=== PATIENT | male | born 2000 | race Caucasian/White ===

== ENCOUNTER 2025-01-07 07:43 | Emergency (ER) | payer OTHER ==
[~2025-01-07] VITALS: Ht 167.6 cm; Wt 61.2 kg
[~2025-01-07 07:43] MED LIST: ADDERALL10 MG PO
[2025-01-07] MEDS ORDERED: PREDNISONE20 M1 PO (07:56)
[2025-01-07] MEDS ORDERED: Dexamethasone Sodium Phospha 20 MG/5 ML VIAL IM ONE (08:00)
== END 2025-01-07 08:15 | disposition home or self-care (01) ==
LOC: ED 07:43
DX: L25.9 Unspecified contact dermatitis, unspecified cause (principal); Z88.8 Allergy status to other drugs, medicaments and biological substances